=== PATIENT | male | born 1950 | race Caucasian/White ===

== ENCOUNTER 2021-12-23 14:30 | Outpatient (CLI) | payer MEDICARE, SELFPAY | END 2021-12-23 14:31 | disposition home or self-care (01) | LOC: WOUND 14:31 | PROVIDERS: Visit Provider Surgery | DX: T81.31XA Disruption of external operation (surgical) wound, not elsewhere classified, initial encounter (principal); I73.9 Peripheral vascular disease, unspecified; J44.9 Chronic obstructive pulmonary disease, unspecified; F17.200 Nicotine dependence, unspecified, uncomplicated | CPT/HCPCS: 97597 ==

== ENCOUNTER 2021-12-30 14:36 | Outpatient (CLI) | payer MEDICARE, SELFPAY | END 2021-12-30 14:37 | disposition home or self-care (01) | LOC: WOUND 14:36 | PROVIDERS: Visit Provider Surgery | DX: T81.31XA Disruption of external operation (surgical) wound, not elsewhere classified, initial encounter (principal); I73.9 Peripheral vascular disease, unspecified; F17.200 Nicotine dependence, unspecified, uncomplicated | CPT/HCPCS: 11042 ==

== ENCOUNTER 2022-01-06 14:24 | Outpatient (CLI) | payer MEDICARE, SELFPAY | END 2022-01-06 14:25 | disposition home or self-care (01) | LOC: WOUND 14:24 | PROVIDERS: Visit Provider Surgery | DX: T81.31XA Disruption of external operation (surgical) wound, not elsewhere classified, initial encounter (principal); I73.9 Peripheral vascular disease, unspecified; F17.200 Nicotine dependence, unspecified, uncomplicated; J44.9 Chronic obstructive pulmonary disease, unspecified | CPT/HCPCS: 99212 ==